=== PATIENT | male | born 1970 | race Caucasian/White ===

== ENCOUNTER 2017-09-13 08:17 | Emergency (ER) | payer OTHER ==
--- NOTE | 2017-09-13 08:48 | EDPHY ---
HPI/HX/ROS/PE/MDM Narrative: CHIEF COMPLAINT: Ankle pain following stingray sting HPI: The patient is a 47 y/o male complaining of waxing and waning left ankle pain secondary to being stung by a stingray 9 days ago while in [place]. He was stung on the medial aspect of his left ankle and has had pain and swelling at the site. He was assessed by a provider in [place] and ultimately prescribed doxycycline on Saturday; no imaging was performed at that time. His symptoms seemed to improve since starting the antibiotic before worsening again over the last 24-48 hours. He says, "I'm having a weird sensation in the joint" and describes profuse itching around the puncture wound and "tugging" along the medial aspect of his ankle radiating up his leg when lift his leg straight up. He's wondering if there is a foreign body in the ankle. Symptoms improve somewhat with SHLOMO compression wrap. He has been able to walk and even jump on the foot since the injury. He denies fever, weakness, paresthesias, other injuries. REVIEW OF SYSTEMS: Aside from elements discussed in the HPI, a comprehensive 10-point review of systems was reviewed and is negative. 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 , also works at [employer]. Lives in [place]. PHYSICAL EXAM: General:Patient is alert, in no acute distress. ENT:Eyes are normal to inspection. ENT inspection normal. Neck: Normal inspection. Full range of motion. Respiratory:No respiratory distress. Cardiovascular:Strong peripheral pulses. Normal cap refill. Skin: Normal color. No rash. Warm and dry. Left ankle: Puncture wound medial left ankle, no discharge, some surrounding erythema and edema. Other Extremities: Normal appearance. Full range of motion. Neuro: Oriented x3. Normal motor function. Normal sensory function. ED Course: This is a healthy 47 y/o male who presents with an isolate injury to his left medial ankle secondary to a sting from a stingray 9 days ago. Symptoms briefly improved after starting doxycycline before regressing over the last 24-48 hours. He has a puncture wound on the medial left ankle with some surrounding erythema and edema and no discharge. He is afebrile. Presentation could indicate infection and/or foreign body in the joint. Plan for leg US and ankle x -ray to better evaluate. US negative for foreign body or abscess. X-ray negative for fracture or foreign body. Consulted with Dr. Ramon Hi, [place], regarding antibiotic choice. He recommends Augmentin in addition to completing his Doxycycline and infectious disease follow up. Reassessed patient and discussed work up. He will be discharged with a script for Augmentin. He understands follow up recommendations. Return precautions discussed. He is comfortable with this plan. MDM: This patient presents with persistent pain and inflammation following a stingray injury to his ankle, despite treatment with doxycycline. We performed an US and XR, which are negative for FB. I considered joint infection, but exam is not consistent with this, and patient can easily bear weight and walk on affected ankle without pain. No drainable fluid collection seen on US. We will add on augmentin for improved strep coverage and have patient follow-up with infectious disease clinic. - Data Points Imaging Results: Imaging Impressions Ankle X-Ray 09/13/17 08:47 Impression: Negative. No discernible foreign body. Extremity Ultrasound 09/13/17 08:49 Impression: No retained foreign body or drainable fluid collection. Findings discussed with Emergency Department physician, Dr. Frankie Alaniz on September 13, 2017 at 0947 hours. Imaging: Discussed imaging studies w/ alley worker Radiologist General Time Seen by Provider: 09/13/17 08:37 Initial Vital Signs: Initial Vital Signs Temperature (C) 36.7 C 09/13/17 08:18 Heart Rate 76 09/13/17 08:18 Respiratory Rate 18 09/13/17 08:18 Blood Pressure 163/95 H 09/13/17 08:18 O2 Sat (%) 95 09/13/17 08:18 O2 Delivery Mode Room Air Allergies/Adverse Reactions: No Known Allergies Allergy (Unverified 09/13/17 08:20) Home Medications: Medication Instructions Recorded Amoxicillin/Clavulanate Pot 875 mg PO BID #14 tab 09/13/17 [Augmentin 875Mg] Departure - Departure Disposition: Home, Routine, Self-Care Clinical Impression: Toxic effect of contact with stingray Condition: Good Instructions: Doxycycline (By mouth), Amoxicillin/Clavulanate Potassium (By mouth) Additional Instructions: 1. Continue taking doxycycline as prescribed until you complete the prescription. 2. Take Augmentin as prescribed. Be sure to complete the entire prescription. 3. Follow up with Dr. Ramon Hi at the infectious disease clinic on September 17 at 1:00pm. 4. Use ibuprofen and Tylenol as directed on the packaging as needed for pain. 5. Return to the ED for severe pain, dramatic increase in redness or swelling or pus, fever, or other worsening of condition. Referrals: [facility] (ED,. [Edm Groups for Call Sched] - As per Instructions Ramon Hi MD [Medical Doctor] - As per Instructions Prescriptions: Amoxicillin/Clavulanate Pot [Augmentin 875Mg] 875 mg PO BID #14 tab Report Scribed for: Frankie Alaniz Report Scribed by: Shelbie Khan Date of Report: 09/13/17 Time of Report: 08:48 Physician Review and Approval Statement: Portions of this note were transcribed by an ED scribe. I personally performed the history, physical exam, and medical decision making; and confirm the accuracy of the information in the transcribed note.
[2017-09-13 10:21] VITALS: BP 135/107
== END 2017-09-13 10:21 | disposition home or self-care (01) ==
DX: T63.511A Toxic effect of contact with stingray, accidental (unintentional), initial encounter (principal)